=== PATIENT | female | born 1960 ===

== ENCOUNTER 2017-08-29 07:55 | Inpatient (IN) ==
[2017-08-29] MEDS ORDERED: ONDANSETRON 4 MG/2 ML VIAL IV PRN (11:19)
[2017-08-29] MEDS ORDERED: SODIUM CHLORIDE 0.9% 1,000 ML IV SCH (11:30)
[2017-08-29 12:07] LABS: Basophils % 0.2 % (0.0-0.8); Hemoglobin 10.6 GM/DL (12.0-16.0); Immature Granulocytes % 0.2 %; Immature Granulocytes Absolute 0.01 #; Lymphocytes # 0.8 10*3/uL (1.4-4.0); Lymphocytes % 18.7 % (21.3-54.2); Mean Corpuscular HGB Conc 33.1 GM/DL (32-36); Mean Corpuscular Hemoglobin 32 PG (27-34); Mean Platelet Volume 9.5 FL (9.6-12.0); Monocytes # 0.4 10*3/uL (0.11-0.8); Monocytes % 8.5 % (1.7-12.7); Neutrophils % 72.4 % (38.7-73.9); Platelet Count 211 T/CUMM (130-400); Red Blood Count 3.37 MC/CUMM (3.8-5.5); White Blood Count 4.1 T/CUMM (4-12)
[2017-08-29 12:38] LABS: Band Neutrophils 2 % (0-10); Eosinophils 1 % (0-10); Giant Platelets Few; Hypochromasia 1+; Lymphocytes 15 % (20-55); Microcytosis Slight; Platelet Estimate Adequate; Segmented Neutrophils 75 % (50-85); Total Cells Counted 100
[2017-08-29 12:42] LABS: Alanine Aminotransferase 65 U/L (13-56); Alkaline Phosphatase 127 U/L (45-117); Aspartate Amino Transferase 72 U/L (0-37); Bilirubin,Total < 0.39 MG/DL (0.2-1.0); Blood Urea Nitrogen 12 MG/DL (7-18); Calcium 8.2 MG/DL (8.5-10.1); Glucose 95 MG/DL (74-106); Magnesium 1.8 MG/DL (1.8-2.4); Osmolality,Calculated 274.7 MOS/KG (273-304); Potassium 4.6 MMOL/L (3.5-5.1); Sodium 138 MMOL/L (136-145); Total Protein 6.5 G/DL (6.4-8.3)
--- NOTE | 2017-08-29 12:44 | Hospitalist History & Physical ---
<SiobhanHusam - Last Filed: 08/29/17 16:35> Assessment and Plan - Time spent with patient Time spent with patient: Greater than 30 minutes (1) Hypertension Status: Acute Current Visit: Yes (2) Diabetes mellitus Status: Acute Current Visit: Yes (3) Hypothyroidism Status: Acute Current Visit: Yes (4) Cardiomyopathy Status: Acute Current Visit: Yes (5) Fever and chills Status: Acute Current Visit: Yes History of Present Illness Chief complaint: headache, fever History of present illness: Ms. Martínez is a 56 year old female with a past medical history significant for hypertension, diabetes mellitus, rheumatoid arthritis, hypothyroidism, cardiomyopathy with pacemaker placement who presents as a transfer from [facility] for further evaluation of headache, fever and chills having onset 3 days ago. The patient was seen several times this week at the [facility] in clinic for fever and chills. She has been treated with antibiotics unsuccessfully and appeared to develop cellulitis of the right leg. Her symptoms worsened on Saturday when she returned to the [facility] and was admitted with a fever of 101.5 and a left shift in her hematology. ER physician there believed the patient could possibly have developed meningitis. However, the labs were unable to analyze a lumbar puncture performed. Patient was transferred to [place] for further evaluation and treatment. Home Medications Medication Instructions Recorded Confirmed Type Carvedilol [Coreg] 3.125 mg PO DAILY 06/25/16 08/29/17 History Gabapentin 300 mg PO TID 06/25/16 07/02/17 History Thyroid [[place] Thyroid] 60 mg PO DAILY@0630 06/25/16 08/29/17 History hydroCHLOROthiazide [Microzide] 12.5 mg PO DAILY 06/25/16 08/29/17 History metFORMIN [Glucophage] 500 mg PO BID W/MEALS 06/25/16 08/29/17 History Hydroxychloroquine [Plaquenil] 400 mg PO DAILY 07/02/17 08/29/17 History Acetamin/Codeine 300-30 Tab 1 - 2 tablet PO Q6H PRN 08/29/17 08/29/17 History [Tylenol/Codeine #3] Dibucaine 1% Oint [Nupercainal 1% 1 applic TOP TID PRN 08/29/17 08/29/17 History Oint] Diclofenac 1% Gel [Voltaren 1% Gel] 1 applic TOP TID 08/29/17 08/29/17 History Losartan [Cozaar] 100 mg PO DAILY 08/29/17 08/29/17 History Magnesium Chloride [Slow Mag] 64 mg PO BID 08/29/17 08/29/17 History Meloxicam 7.5 mg PO DAILY PRN 08/29/17 08/29/17 History Meloxicam 15 mg PO DAILY PRN 08/29/17 08/29/17 History sulfaSALAzine [Sulfasalazine] 500 mg PO BID 08/29/17 08/29/17 History tiZANidine [Zanaflex] 4 mg PO BEDTIME 08/29/17 08/29/17 History Allergies Allergy/AdvReac Type Severity Reaction Status Date / Time aspirin Allergy Verified 06/25/16 08:11 ibuprofen [From Motrin] Allergy Verified 06/25/16 06:07 Medical,Surgical,& Family Hx - Medical History Cardio: History of: Cardiac Dysrhythmia (bundle branch block in past), Hypertension, Pacemaker (2016) Neurology: History of: Migraine, Peripheral Neuropathy No history of: Seizures Endocrine: History of: Diabetes Mellitus (IDDM), Diabetes Mellitus (NIDDM), Dyslipidemia, Thyroid Disorder Renal: No history of: Renal Problems Genitourinary: No history of: Bladder Problem, Kidney Stones Gastrointestinal: History of: GI Problems (colitis in the past) Musculoskeletal: History of: Musculoskeletal Problems (arthritis & gets back injections) No history of: Back/Neck Problems (sees pain ) Hematology: No history of: Blood Transfusion Reaction Reproductive: No history of: Breast Cancer Other: No history of: Anesthesia Reactions - Surgical History Cardiac Surgeries: Sugical HX of: Cardiac Catheterization HEENT Surgeries: Patient denies: Eye Surgery, Tonsilectomy & Adenoidectomy Abdominal Surgeries: Surgical HX of: Cholecystectomy, Colonoscopy Patient denies: Appendectomy, EGD, Hernia Repair Reproductive Surgeries: Surgical HX of;: Section, Tubal Ligation (1987) Patient denies;: Breast Surgery Orthopedic Surgeries: Surgical HX of;: Orthopedic Surgery (bilateral knee scope) - Family History Family History: Reports;: Family Cancer, Family Diabetes, Family Hypertension, Family Stroke - Social History Smoking Status: Former smoker Frequency of Alcohol Use: None Type of Drug Use: None Exam - Constitutional Vitals: Period Temp Pulse Resp BP Sys/Stein Pulse Ox Last 24 Hr 99.7 F-99.7 F 50-57 14-18 169-169/74-74 90-90 Results - Labs CBC & BMP: 08/29/17 11:54 08/29/17 11:54 <WhiteIngacia R - Last Filed: 08/29/17 17:10> Assessment and Plan (1) Cellulitis and abscess of left leg Status: Acute Assessment and plan: vancomycin IV, Current Visit: Yes (2) Headache Status: Acute Assessment and plan: [facility] sent her here for lumbar puncture, Head ct on disc from [facility], start meningitis antibiotics including vancomycin, Rocephin and ampicillin. Consult Dr. Catalan from infectious disease Current Visit: Yes (3) Hypertension Status: Acute Assessment and plan: Start losartan, hold Coreg due to bradycardia. Bradycardia meatus also be due to some sleep apnea. Current Visit: Yes (4) Diabetes mellitus Status: Acute Assessment and plan: Hemoglobin A1c. Insulin sliding scale Current Visit: Yes (5) Hypothyroidism Status: Acute Assessment and plan: Continue levothyroxine and check TSH Current Visit: Yes (6) Rheumatoid arthritis Status: Acute Assessment and plan: Hold Plaquenil and sulfasalazine due to active infection. Current Visit: Yes History of Present Illness History of present illness: Ms. Martínez is a 56 year old female arrived from [facility]. Patient had been admitted last night from the emergency room to the hospitalist service at [facility] for right lower extremity cellulitis. Patient was complaining of headaches and neck stiffness when Dr. Augustine saw her. She was sent over here for admission for lumbar puncture. Patient will be admitted overnight. She was started on vancomycin and Rocephin and ampicillin. Medical,Surgical,& Family Hx - Medical History Rheumatology: History of;: Rheumatoid Arthritis - Social History Marital Status: Single Lives With:: Alone Functional capacity: independent ambulation - Constitutional Constitutional: Present: fatigue, fever(s), headache(s) - EENT Eyes: Absent: blurry vision, diplopia Ears: Absent: decreased hearing, ear discharge Nose, mouth and throat: Present: headache(s), sore throat - Cardiovascular Cardiovascular: Absent: chest pain at rest, dyspnea, dyspnea on exertion - Respiratory Respiratory: Absent: cough, dyspnea, dyspnea on exertion - Gastrointestinal Gastrointestinal: Present: nausea. Absent: abdominal pain, vomiting - Genitourinary Genitourinary: Absent: difficulty urinating, dysuria - Neurological Neurological: Present: dizziness, headache(s). Absent: focal weakness, syncope - Psychiatric Psychiatric: Present: depression. Absent: anxiety - Endocrine Endocrine: Present: fatigue, heat intolerance. Absent: cold intolerance - Hematologic/Lymphatic Hematologic/Lymphatic: Absent: easy bleeding, easy bruising Exam - Constitutional Vitals: Period Temp Pulse Resp BP Sys/Stein Pulse Ox Last 24 Hr 99.7 F-99.7 F 50-57 14-18 169-169/74-74 90-90 General appearance: normal weight, mild distress Exam: Heart Rate-tachy] Lungs-[CTAB] GI-[+bs soft, NT] Ext-[left LE edema and erythema, puncture wound on foot Neuro [Motor 5/5], [alert and oriented times 3] psych [normal mood and affect] General [no acute distress] - Head Head exam: Present: normal inspection, normocephalic - Eye Eye exam: Present: EOMI. Absent: scleral icterus Pupils: Present: ADI, normal accommodation - ENT ENT exam: Present: normal exam, normal external ear exam - Neck Neck exam: Absent: lymphadenopathy, thyromegaly - Respiratory Respiratory exam: Present: clear to auscultation bilaterally. Absent: rhonchi, wheezes - Cardiovascular Cardiovascular exam: Present: bradycardia. Absent: systolic murmur - GI/Abdominal GI/Abdominal exam: Present: normal bowel sounds, soft. Absent: tenderness - Extremities Exam Extremities exam: Present: normal inspection, normal capillary refill - Neurological Exam Neurological exam: Present: alert, oriented X3, CN II-XII intact, reflexes normal. Absent: motor sensory deficit - Psychiatric Psychiatric exam: Present: agitated, anxious - Skin Skin exam: Present: normal color, warm, erythema (streaking up left leg ) Results - Labs CBC & BMP: 08/29/17 11:54 08/29/17 11:54 Lab Results: I have reviewed the past 24 hour labs - Diagnostic Findings Procedure: Chest x-ray: report reviewed by me (bilateral atelectasis )
[2017-08-29] MEDS ORDERED: VANCOMYCIN INJ 1,250 MG in SODIUM CHLORIDE 0.9% 250 ML IV ONE (13:00)
--- NOTE | 2017-08-29 13:02 | XRay Report ---
History short of breath Comparison 04/01/2017 The heart is mildly enlarged with pacemaker present There are mildly increasing linear opacities in both lung bases. The lungs are under aerated. Upper lung sainz are clear Impression: Increasing discoid atelectasis in both lung bases PROCEDURE INTERPRETED AT [facility] DEPARTMENT OF RADIOLOGY Final Report Signed by: Dr. Frances Boggs
[2017-08-29] MEDS ORDERED: DIBUCAINE 1% OINT 28 GM TUBE TOP PRN (13:58)
[2017-08-29] MEDS ORDERED: DEXTROSE 50% 25 GM/50 ML VIAL IV PRN (14:07)
[2017-08-29] MEDS ORDERED: GLUCAGON 1 MG VIAL IM PRN (14:07)
[2017-08-29] MEDS: SODIUM CHLORIDE 0.45% 1,000 ML IV SCH ×2 (14:21→22:00)
[2017-08-29] MEDS: AMPICILLIN INJ 2,000 MG in SODIUM CHLORIDE 0.9% 50 ML IV SCH ×2 (14:21→20:56)
[2017-08-29] MEDS: LOSARTAN 50 MG TABLET PO SCH (14:23)
[2017-08-29] MEDS: DICLOFENAC 1% GEL 100 GM TUBE TOP SCH ×2 (14:56→21:00)
[2017-08-29] MEDS: GABAPENTIN 300 MG CAPSULE PO SCH ×2 (14:56→20:35)
[2017-08-29 16:17] LABS: Glucose,CSF 53 MG/DL (40-70)
--- NOTE | 2017-08-29 16:33 | Post Interventional Procedure ---
Pre-op diagnosis: possible meningitis, headache Post-op diagnosis: same Procedure: lumbar puncture Contrast: none Flouroscopy: 0.2 min Radiologist: Paresh Castellanos Anesthesia: local Specimens: other (10 mL clear CSF sent for any requested studies) Estimated blood loss: none Complications: none Condition: stable Description/Findings: opening pressure 27 cm H2O patient tolerated well Assessment and Plan - Time spent with patient Time spent with patient: Less than 30 minutes
[2017-08-29] MEDS: INSULIN LISPRO 100 UNIT/ML SUBCUT SCH ×2 (16:34→20:30)
[2017-08-29 16:37] LABS: Lymphocytes,CSF 35 %; Monocytes,CSF 17 %; Neutrophils,CSF 48 %
--- NOTE | 2017-08-29 16:38 | Interventional Radiology Rpt ---
Procedure: IR lumbar puncture diagnostic Clinical history: 56-year-old female with headache, neck stiffness, fever. Procedure: Informed consent was obtained prior to procedure. Formal timeout was performed. Maximum sterile barrier technique was employed. The patient was placed prone on the fluoroscopy table. The low back was prepped and draped in a sterile fashion. A midline lumbar puncture was then performed at the L2-L3 interspace using a 20-gauge spinal needle. Fluoroscopic guidance was used and a captured image documents the needle position. An opening pressure of 27 cm water was obtained. Subsequently, 10 milliliters of clear, colorless CSF was withdrawn and sent to laboratory. The spinal needle was removed and a bandage placed the puncture site. Fluoroscopy time: 0.2 minutes. Consultations: None. Impression: Technically successful diagnostic lumbar puncture as described. PROCEDURE INTERPRETED AT [facility] DEPARTMENT OF RADIOLOGY Final Report Signed by: Paresh Castellanos
[2017-08-29] MEDS: MAGNESIUM CHLORIDE 64 MG TABLET PO SCH (20:35)
[2017-08-29 20:54] LABS: Apearance,Urine CLEAR (Clear); Bilirubin,Urine Negative (Negative); Blood, Urine Negative (Negative); Glucose,Urine (UA) Negative (Negative); Ketones,Urine 20 mg/dL (Negative); Nitrite,Urine Negative (Negative); Protein,Urine Negative; RBC,Urine <1 /HPF (0-4); Squamous Epithelial Cell,Urine Occasional /HPF (0-10); Urine Color Yellow (Yellow); Urine Specific Gravity 1.011 (1.001-1.035); Urine Urobilinogen < 2.0 EU/DL (0.2-1.0); WBC,Urine <1 /HPF (0-6)
[2017-08-30] MEDS: VANCOMYCIN INJ 1,250 MG in SODIUM CHLORIDE 0.9% 250 ML IV SCH ×2 (02:20→14:22)
[2017-08-30] MEDS: AMPICILLIN INJ 2,000 MG in SODIUM CHLORIDE 0.9% 50 ML IV SCH ×4 (04:07→20:28)
[2017-08-30] MEDS: ACETAMINOPHEN 325 MG TABLET PO PRN (06:02)
[2017-08-30 06:49] LABS: Eosinophils % 0.3 % (0.00-10.9); Hematocrit 28.5 VOL% (35.7-47.0); Hemoglobin 9.5 GM/DL (12.0-16.0); Immature Granulocytes % 0.5 %; Immature Granulocytes Absolute 0.02 #; Lymphocytes # 1.3 10*3/uL (1.4-4.0); Lymphocytes % 32.3 % (21.3-54.2); Mean Corpuscular HGB Conc 33.3 GM/DL (32-36); Mean Corpuscular Hemoglobin 32 PG (27-34); Mean Platelet Volume 9.8 FL (9.6-12.0); Monocytes # 0.6 10*3/uL (0.11-0.8); Monocytes % 14.8 % (1.7-12.7); Neutrophils # 2.1 10*3/uL (1.4-7.4); Neutrophils % 52.1 % (38.7-73.9); Platelet Count 220 T/CUMM (130-400); Red Cell Distribution Width 12.6 % (9.3-17.3)
[2017-08-30 07:25] LABS: Albumin 2.5 G/DL (3.4-5.0); Bilirubin,Total 0.5 MG/DL (0.2-1.0); Osmolality,Calculated 279.1 MOS/KG (273-304); Potassium 5.1 MMOL/L (3.5-5.1); Total Protein 5.6 G/DL (6.4-8.3)
[2017-08-30] MEDS: INSULIN LISPRO 100 UNIT/ML SUBCUT SCH ×4 (08:41→19:58)
[2017-08-30] MEDS: SODIUM CHLORIDE 0.45% 1,000 ML IV SCH ×3 (09:12→23:50)
[2017-08-30] MEDS: GABAPENTIN 300 MG CAPSULE PO SCH ×3 (09:13→20:25)
[2017-08-30] MEDS: MAGNESIUM CHLORIDE 64 MG TABLET PO SCH ×2 (09:13→20:25)
[2017-08-30] MEDS: LOSARTAN 50 MG TABLET PO SCH (09:13)
[2017-08-30] MEDS: DICLOFENAC 1% GEL 100 GM TUBE TOP SCH ×3 (09:14→20:26)
[2017-08-30] MEDS: THYROID 60 MG TABLET PO SCH (09:14)
[2017-08-30 09:41] LABS: Appearance,CSF Clear; Red Blood Cell,CSF 6 C/CUMM; White Blood Cell,CSF 6 C/CUMM
[2017-08-30] MEDS ORDERED: MEPERIDINE 25 MG/1 ML VIAL IV ONE (10:19)
[2017-08-30] MEDS ORDERED: KETOROLAC 30 MG/1 ML VIAL IV ONE (10:19)
[2017-08-30] MEDS ORDERED: BUTALBITAL/ACETAMIN/CAFFEINE 50-325-40 MG TABLET PO PRN (10:19)
--- NOTE | 2017-08-30 14:41 | CT Report ---
History: Fever and headaches. Abscess Date: 08/30/2017 Study: CT cervical spine without IV contrast Comparison exam: No previous similar Thin spiral CT sections were obtained through the cervical spine following 100 mL Omnipaque 350 IV contrast. Multiplanar reconstruction images are also evaluated. There is no fracture, subluxation, or prevertebral soft tissue swelling. The disc spaces are well-maintained. There is no high-grade spinal stenosis or obvious disc extrusion. There is no obvious enhancing soft tissue mass within the spinal canal or gross epidural abscess. There is no obvious soft tissue mass seen at the cervical level where partially visualized otherwise. This CT exam was performed using one or more the following dose reduction techniques: Automated exposure control, adjustment of the MA and/or KV according to patient size, or use of iterative reconstruction technique. Impression: No significant abnormality PROCEDURE INTERPRETED AT [facility] DEPARTMENT OF RADIOLOGY Final Report Signed by: Dr. Luciana Guan
--- NOTE | 2017-08-30 14:53 | CT Report ---
History: Fever and headaches. Abscess Date: 08/30/2017 Study: CT thoracic spine without IV contrast Comparison exam: No previous similar Thin spiral CT sections were obtained through the thoracic following 100 mL Omnipaque 350 IV contrast. Multiplanar reconstruction images are also evaluated. There is no fracture or subluxation. The disc spaces are well-maintained. There is no high-grade spinal stenosis or obvious disc extrusion. There is no obvious enhancing soft tissue mass within the spinal canal or gross epidural abscess. There is no obvious soft tissue mass seen at the thoracic level where partially visualized otherwise. There is nonspecific mild platelike atelectasis in the lower lungs. The patient has a pacemaker device. There is minimal thoracic spondylosis. This CT exam was performed using one or more the following dose reduction techniques: Automated exposure control, adjustment of the MA and/or KV according to patient size, or use of iterative reconstruction technique. Impression: No significant thoracic spine abnormality PROCEDURE INTERPRETED AT [facility] DEPARTMENT OF RADIOLOGY Final Report Signed by: Dr. Luciana Guan
--- NOTE | 2017-08-30 15:10 | Hospitalist Progress Note ---
Assessment and Plan (1) Cellulitis and abscess of left leg Status: Acute Assessment and plan: Almost completely resolved with vancomycin IV, Current Visit: Yes (2) Headache Status: Acute Assessment and plan: No evidence of meningitis. Will do CT with contrast of neck and thoracic spine to ensure no abscess, despite negative spinal tap with continue IV antibiotics until CSF cultures no growth 2 days. Current Visit: Yes (3) Hypertension Status: Acute Assessment and plan: cont losartan and coreg Current Visit: Yes (4) Diabetes mellitus Status: Acute Assessment and plan: Hemoglobin A1c 5.8. Insulin sliding scale, blood sugars are low will hold metformin for now. Current Visit: Yes (5) Hypothyroidism Status: Acute Assessment and plan: Continue levothyroxine and normal TSH Current Visit: Yes (6) Rheumatoid arthritis Status: Acute Assessment and plan: Hold Plaquenil and sulfasalazine due to active infection. Current Visit: Yes Hospitalist: Subjective Interval history: Patient has a severe headache today. She says she has had a headache for approximately 1 week. She said it did get a little worse after the spinal tap but it does not sound like a post spinal tap headache to me. Anesthesia came to see her and agrees that it is not post spinal tap headache. Gave her Demerol and Toradol and Fioricet and she felt better. I am concerned about her chronic neck pain and upper back pain. I will do a CT with contrast to ensure there is no infection in her neck or in her back. Patient does have a pacemaker and cannot have an MRI at this point. I have spoken with Dr. Lora Augustine and she will take the patient back tomorrow morning. Exam - Constitutional Vitals: Period Temp Pulse Resp BP Sys/Stein Pulse Ox Last 24 Hr 97.5 F-99.7 F 58-77 16-20 116-157/48-68 93-96 Exam: Heart Rate-RRR] Lungs-[CTAB] GI-[+bs soft, NT] Ext-[left LE edema and erythema, almost completely gone Neuro [Motor 5/5], [alert and oriented times 3] psych [agitated mood and affect] General [moderate acute distress due to migraine] Results - Labs CBC & BMP: 08/30/17 05:36 08/30/17 05:36 Lab Results: I have reviewed the past 24 hour labs Labs: CSF fluid only shows 6 white cells. The tap was clear and colorless, CSF cultures are negative. Blood cultures 2 negative
[2017-08-30] MEDS: CARVEDILOL 3.125 MG TABLET PO SCH (15:50)
[2017-08-31] MEDS: ACETAMINOPHEN 325 MG TABLET PO PRN (00:42)
[2017-08-31] MEDS ORDERED: VANCOMYCIN INJ 1,500 MG in SODIUM CHLORIDE 0.9% 500 ML IV SCH (02:00)
[2017-08-31 04:12] LABS: Basophils % 0.3 % (0.0-0.8); Eosinophils % 1.2 % (0.00-10.9); Hematocrit 26.4 VOL% (35.7-47.0); Hemoglobin 8.8 GM/DL (12.0-16.0); Immature Granulocytes % 0.9 %; Immature Granulocytes Absolute 0.03 #; Lymphocytes # 1.4 10*3/uL (1.4-4.0); Lymphocytes % 40.9 % (21.3-54.2); Mean Corpuscular HGB Conc 33.3 GM/DL (32-36); Mean Corpuscular Hemoglobin 31 PG (27-34); Mean Corpuscular Volume 94.3 FL (87-102); Mean Platelet Volume 9.7 FL (9.6-12.0); Monocytes # 0.5 10*3/uL (0.11-0.8); Neutrophils # 1.4 10*3/uL (1.4-7.4); Neutrophils % 41.7 % (38.7-73.9); Platelet Count 238 T/CUMM (130-400); Red Cell Distribution Width 12.7 % (9.3-17.3); White Blood Count 3.4 T/CUMM (4-12)
[2017-08-31 04:26] LABS: Alanine Aminotransferase 45 U/L (13-56); Albumin 2.4 G/DL (3.4-5.0); Alkaline Phosphatase 97 U/L (45-117); Aspartate Amino Transferase 40 U/L (0-37); Bilirubin,Total < 0.39 MG/DL (0.2-1.0); Blood Urea Nitrogen 10 MG/DL (7-18); Calcium 7.9 MG/DL (8.5-10.1); Glucose 95 MG/DL (74-106); Osmolality,Calculated 281.1 MOS/KG (273-304); Potassium 4.6 MMOL/L (3.5-5.1); Sodium 142 MMOL/L (136-145); Total Protein 5.5 G/DL (6.4-8.3)
[2017-08-31] MEDS: VANCOMYCIN INJ 1,250 MG in SODIUM CHLORIDE 0.9% 250 ML IV SCH (05:13)
[2017-08-31] MEDS: AMPICILLIN INJ 2,000 MG in SODIUM CHLORIDE 0.9% 50 ML IV SCH ×2 (05:18→12:02)
[2017-08-31] MEDS: THYROID 60 MG TABLET PO SCH (06:14)
[2017-08-31] MEDS ORDERED: MEPERIDINE 25 MG/1 ML VIAL IV ONE (09:23)
[2017-08-31] MEDS ORDERED: KETOROLAC 30 MG/1 ML VIAL IV ONE (09:24)
[2017-08-31] MEDS ORDERED: ZIPRASIDONE 20 MG/1 ML VIAL IM ONE (09:28)
--- NOTE | 2017-08-31 09:28 | Discharge Summary ---
Hospital Course - Hospital Course Hospital Course: 56 year old female with a past medical history significant for hypertension, diabetes mellitus, rheumatoid arthritis, hypothyroidism, cardiomyopathy with pacemaker placement who presents as a transfer from [facility] for further evaluation of headache, fever and chills having onset 3 days ago. Patient developed cellulitis of her left lower extremity. She is currently on immune suppressive including sulfasalazine and Plaquenil. Patient developed neck stiffness with a severe headache and was transferred from [facility] for an evaluation for meningitis. Patient had a spinal tap by Dr. Paresh Castellanos on August 29, 2017. The CSF was clear and colorless with white cells of only 6. Neutrophils 48 and lymphocytes of 35. Her CSF glucose was 53 and her CSF protein was 33. Her CSF cultures were negative no growth. Her cryptococcus antigen was negative. Simona ink stain showed no encapsulated organisms. Her AFB on her CSF was negative., Her CSF for fungal smear was negative, blood cultures 2 were negative no growth. She will return to [facility] today I would recommend keeping antibiotics for 1 more day if cultures are no growth tomorrow you can DC IV antibiotics and she most likely can go home on oral. Her cellulitis is almost completely resolved. She still has a headache and have asked Dr. Mauro to see her today. Her headache is relieved with Demerol and Toradol but quickly returns. This sounds more chronic than acute to me. It is not considered a post spinal tap headache. Dr. Mauro will see her if he is unable to see her today he will see her as an outpatient. A CT scan of her cervical and thoracic spine was ordered with contrast and shows no evidence of abscess. She will be transferred back to [facility] under the care of Dr. Lora Augustine. - Time spent with patient Time with patient DS: Greater than 30 minutes (35 min) Diagnosis - Discharge Diagnosis (1) Cellulitis and abscess of left leg Status: Acute (2) Headache Status: Acute (3) Hypertension Status: Acute (4) Diabetes mellitus Status: Acute (5) Hypothyroidism Status: Acute (6) Rheumatoid arthritis Status: Acute Specialty Discharge - Follow Up or Referrals Follow up with: Singh Mauro MD [Physician] - (call office on saturday to set up appointment ) Discharge Plan - Discharge Data Disposition: Disch/Xfer-[facility] Condition at Discharge: Stable Discharge Diet: diabetic diet Activity: resume usual activities as tolerated Hygiene: no restrictions Weight Bearing at Discharge: full weight bearing - Discharge Medications New Ampicillin Inj 2,000 mg IV Q6H vial Butalbital/Acet/Caff 50-325-40 [Fioricet 50-325-40 mg Tablet] 1 tablet PO Q4H PRN tablet PRN Reason: Headache Dextrose 50% [D50] 25 gm IV PRN PRN vial PRN Reason: Hypoglycemia with IV access Glucagon 1 mg IM PRN PRN vial PRN Reason: Hypoglycemia w/o IV access HYDROcodone/ACETAMIN 7.5-325 [[place] 7.5-325] 1 tablet PO Q4H PRN tablet PRN Reason: Pain Moderate (4-7) Ondansetron Inj [Zofran Inj] 4 mg IV Q4H PRN vial PRN Reason: Nausea Vancomycin Inj 1,500 mg IV Q12H vial Amitriptyline [Elavil] 25 mg PO BEDTIME #30 tablet cefTRIAXone [Rocephin] 2,000 mg IV Q12H vial Insulin Lispro [HumaLOG] See Protocol SUBCUT ACHS unit Continue Thyroid [[place] Thyroid] 60 mg PO DAILY@0630 Carvedilol [Coreg] 3.125 mg PO DAILY Gabapentin 300 mg PO TID tiZANidine [Zanaflex] 4 mg PO BEDTIME sulfaSALAzine [Sulfasalazine] 500 mg PO BID Magnesium Chloride [Slow Mag] 64 mg PO BID Losartan [Cozaar] 100 mg PO DAILY Diclofenac 1% Gel [Voltaren 1% Gel] 1 applic TOP TID Dibucaine 1% Oint [Nupercainal 1% Oint] 1 applic TOP TID PRN PRN Reason: Rash Discontinued metFORMIN [Glucophage] 500 mg PO BID W/MEALS hydroCHLOROthiazide [Microzide] 12.5 mg PO DAILY Meloxicam 7.5 mg PO DAILY PRN PRN Reason: Pain Hydroxychloroquine [Plaquenil] 400 mg PO DAILY Meloxicam 15 mg PO DAILY PRN PRN Reason: Pain Acetamin/Codeine 300-30 Tab [Tylenol/Codeine #3] 1 - 2 tablet PO Q6H PRN PRN Reason: Pain - Follow Up or Referral Follow Up: Singh Mauro MD [Physician] - (call office on saturday to set up appointment ) - Forms/Instructions Exam - Constitutional Vitals: Period Temp Pulse Resp BP Sys/Stein Pulse Ox Last 24 Hr 97.0 F-98.4 F 60-70 16-20 141-179/62-74 92-98 General appearance: no acute distress, over weight - Respiratory Respiratory exam: Present: clear to auscultation bilaterally. Absent: rhonchi, wheezes - Cardiovascular Cardiovascular exam: Present: regular rate and rhythm. Absent: systolic murmur - GI/Abdominal GI/Abdominal exam: Present: normal bowel sounds, soft. Absent: tenderness - Extremities Exam Extremities exam: Present: normal inspection, normal capillary refill - Neurological Exam Neurological exam: Present: alert, oriented X3 - Psychiatric Psychiatric exam: Present: depressed, flat affect Discharge Results Procedures and tests throughout hospitalization: Pending Orders 08/29/17 11:53 Blood Culture Stat 08/29/17 11:59 AFB Culture/Smears Stat CSF Culture and Gram Stain Stat [place] Virus PCR Stat Fungal Culture w/ Prep Stat HSV PCR Other Sources Stat Herpes Simplex Virus,PCR,CSF Stat Meningitis Ags w/CSF Cult/Smea Stat Mycobacterium tuberculosis PCR Stat VDRL Spinal Fluid Stat Varicella-Zoster Virus, PCR Stat West Nile Virus Ab (IgG/M),CSF Stat 08/29/17 16:00 Viral Culture, Non-Respiratory Stat 09/01/17 04:00 CMP [Comprehensive Metabolic Panel] IN AM Comp Blood Count Auto Diff IN AM 09/01/17 13:30 Vancomycin,Trough Timed Labs on day of discharge: Labs from last 24 hours 08/31/17 08/31/17 08/31/17 08:00 02:53 02:53 WBC 3.4 L RBC 2.80 L Hgb 8.8 L Hct 26.4 L MCV 94.3 MCH 31 MCHC 33.3 RDW 12.7 Plt Count 238 MPV 9.7 Neut % (Auto) 41.7 Lymph % (Auto) 40.9 [place] % (Auto) 15.0 H Eos % (Auto) 1.2 Baso % (Auto) 0.3 Neut # (Auto) 1.4 Lymph # (Auto) 1.4 [place] # (Auto) 0.5 Eos # (Auto) 0.0 Baso # (Auto) 0.0 Immature Gran % 0.9 Nucleated RBC % 0.0 Immature Gran # 0.03 Nucleated RBCs # 0.00 Immature Plt Fraction 0.0 Sodium 142 Potassium 4.6 Chloride 110 H Carbon Dioxide 26 Anion Gap 10.6 BUN 10 Creatinine 0.60 GFR Calculation 109 BUN/Creatinine Ratio 16.00 Glucose 95 POC Glucose 108 H Calculated Osmolality 281.1 Calcium 7.9 L Total Bilirubin < 0.39 AST 40 H ALT 45 Alkaline Phosphatase 97 Total Protein 5.5 L Albumin 2.4 L Globulin 3.1 Albumin/Globulin Ratio 0.7 L CSF Appearance CSF Color CSF WBC CSF RBC Vancomycin Trough 08/30/17 08/30/17 08/30/17 19:58 17:14 12:28 WBC RBC Hgb Hct MCV MCH MCHC RDW Plt Count MPV Neut % (Auto) Lymph % (Auto) [place] % (Auto) Eos % (Auto) Baso % (Auto) Neut # (Auto) Lymph # (Auto) [place] # (Auto) Eos # (Auto) Baso # (Auto) Immature Gran % Nucleated RBC % Immature Gran # Nucleated RBCs # Immature Plt Fraction Sodium Potassium Chloride Carbon Dioxide Anion Gap BUN Creatinine GFR Calculation BUN/Creatinine Ratio Glucose POC Glucose 160 H 127 H Calculated Osmolality Calcium Total Bilirubin AST ALT Alkaline Phosphatase Total Protein Albumin Globulin Albumin/Globulin Ratio CSF Appearance CSF Color CSF WBC CSF RBC Vancomycin Trough 15.0 08/30/17 08/29/17 11:31 16:00 WBC RBC Hgb Hct MCV MCH MCHC RDW Plt Count MPV Neut % (Auto) Lymph % (Auto) [place] % (Auto) Eos % (Auto) Baso % (Auto) Neut # (Auto) Lymph # (Auto) [place] # (Auto) Eos # (Auto) Baso # (Auto) Immature Gran % Nucleated RBC % Immature Gran # Nucleated RBCs # Immature Plt Fraction Sodium Potassium Chloride Carbon Dioxide Anion Gap BUN Creatinine GFR Calculation BUN/Creatinine Ratio Glucose POC Glucose 110 H Calculated Osmolality Calcium Total Bilirubin AST ALT Alkaline Phosphatase Total Protein Albumin Globulin Albumin/Globulin Ratio CSF Appearance Clear CSF Color Colorless CSF WBC 6 CSF RBC 6 Vancomycin Trough Preliminary micro results at discharge 08/29/17 11:59 CSF Culture - Preliminary Cerebral Spinal Fluid No Growth at 48 hours. 08/29/17 11:53 Blood Culture - Preliminary Blood No growth at 1 day 08/29/17 11:54 Blood Culture - Preliminary Blood No growth at 1 day DS: Provider Date of admission: 08/29/17 11:18 Primary care physician: Ramez Valdez MD Attending physician on admission: Iván Garcia MD Consults: 08/30/17 09:44 Consult to Physician [CONS] Routine Comment: blood patch Consulting Provider: Chente David Person Notified: FEDERICO CASTLE Date Notified: 08/30/17 Time Notified: 10:10 08/31/17 09:22 Consult to Physician [CONS] Routine Consulting Provider: Singh Mauro Comment: migraine, intractable When should Consulting Provider be notified: Now Discharging clinician: Ignacia Weiner MD
[2017-08-31] MEDS: INSULIN LISPRO 100 UNIT/ML SUBCUT SCH ×2 (10:48→23:52)
[2017-08-31] MEDS: LOSARTAN 50 MG TABLET PO SCH (11:09)
[2017-08-31] MEDS: CARVEDILOL 3.125 MG TABLET PO SCH (11:12)
[2017-08-31] MEDS: MAGNESIUM CHLORIDE 64 MG TABLET PO SCH (11:13)
[2017-08-31] MEDS: DICLOFENAC 1% GEL 100 GM TUBE TOP SCH (11:15)
[2017-08-31 12:52] VITALS: BP 179/81
[2017-08-31 13:41] LABS: VDRL Spinal Fluid Negative (Negative)
[2017-08-31] MEDS ORDERED: AMITRIPTYLINE 25 MG TABLET PO SCH (21:00)
[2017-08-31] MEDS: GABAPENTIN 300 MG CAPSULE PO SCH (23:49)
[2017-09-02 14:31] LABS: M. Tuberculosis PCR Result Negative (Negative); M. Tuberculosis PCR Source CSF
[2017-09-03 08:14] LABS: Epstein-Barr Virus Result Negative (Negative); Epstein-Barr Virus Source CSF; Specimen Source CSF
== END 2017-08-31 14:45 | disposition other institution (70) | DRG 603 ==
LOC: SUATTDRO 09:55 → N.2E 09:55 → INTOOBSV 09:55
PROVIDERS: ADMIT Family Medicine; ATTEND Internal Medicine